=== PATIENT | male | born 1965 | race Caucasian/White ===

== ENCOUNTER 2017-10-30 06:32 | Day surgery (SDC) | payer BC ==
--- NOTE | 2017-10-26 20:12 | HP ---
PREOPERATIVE HISTORY AND PHYSICAL: DATE OF ADMISSION/SURGERY: 10/30/17 DATE OF OFFICE VISIT/ENCOUNTER: 10/19/17 ATTENDING SURGEON: Jossy Caldwell MD * (DICTATED BY SEBAS HEADLEY) PROCEDURE: Right long finger trigger finger release. CHIEF COMPLAINT: Right long finger triggering. HISTORY OF PRESENT ILLNESS: This is a 52-year-old male who complains of 3 years of triggering and locking in his right middle finger. He says it has gradually gotten worse. He had a cortisone injection a while ago and that did give him some relief. However, now he would like to proceed with surgical treatment. He denies any specific injury to this finger. PAST MEDICAL HISTORY: 1. Low testosterone. 2. Asthma. 3. Hypertension. 4. Sleep apnea for which he wears a CPAP. PAST SURGICAL HISTORY: Tonsillectomy. CURRENT MEDICATIONS: 1. Advair Diskus. 2. Bisoprolol fumarate 5 mg. 3. Daily multivitamins. 4. Testosterone 25 mg/2.5 g 1% two packets topically every day. ALLERGIES: PENICILLIN causes throat swelling FAMILY MEDICAL HISTORY: Diabetes, heart disease, stroke, hypertension. 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 He denies tobacco use, recreational drug use, and does not drink alcohol. REVIEW OF SYSTEMS: General: Negative for fevers, chills, or night sweats. No known anesthesia problems. HEENT: Negative for headache, lightheadedness, or syncopal episodes. Integumentary: Negative for abrasions, lesions, or open wounds. Cardiothoracic: Positive for hypertension. Negative for chest pain, palpitations, or edema. Pulmonary: Negative for shortness of breath with exertion, chronic cough, or COPD. GI: Negative for nausea, vomiting, diarrhea , constipation, or GERD. : Negative for nocturia, urinary frequency, urgency , history of UTIs, or kidney problems. Musculoskeletal: Positive for current complaint. Negative for chronic or intermittent back pain or history of fractures. Neurologic: Negative for paresthesias, numbness, history of seizures , stroke, or epilepsy. Endocrine: Negative for diabetes or thyroid issues. Hematologic: Negative for easy bruising, anemia, excessive bleeding, or history of DVT. Infectious Disease: Negative for history of MRSA, hepatitis C, or HIV. PHYSICAL EXAMINATION GENERAL: Well-developed, well-nourished, 52-year-old male, in no acute distress. VITAL SIGNS: Height is 5 feet 6 inches, weight 229 pounds. Blood pressure 122/ 84. HEENT: Normocephalic, atraumatic. Pupils are equal, round, and reactive to light and accommodation. Extraocular movements are intact. NECK: Supple. No palpable lymph nodes. Throat is clear. PULMONARY: Lungs are clear to auscultation bilaterally. No wheezes, rales, or rhonchi. CARDIOVASCULAR: Regular rate and rhythm. S1 and S2. No murmurs, rubs, or gallops. No edema. ABDOMEN: Positive bowel sounds, soft, nontender. NEUROLOGIC: Alert and oriented x3. Cranial nerves II through XII are intact. Sensation is intact to light touch. MUSCULOSKELETAL: On exam of the right hand, he cannot fully flex the middle finger into a fist. He lacks a little bit of extension at the PIP joint. He has tenderness to palpation at the A1 nery. Skin is intact. Neurovascular function is intact. IMPRESSION: Right middle finger trigger finger. PLAN: The patient is scheduled to undergo a right long finger trigger finger release with Dr. Caldwell on 10/30/17. He will return to the office 10 to 14 days postop for followup and suture removal. A prescription for Ultracet was e- scribed to the patient's pharmacy for postoperative pain management. SEBAS HEADLEY [id number]/[facility] #: [id number] SANGEETA
[~2017-10-30 06:32] MED LIST: Buffered Lidocaine 0.9% SYRIN* 5 ML/SYR SYRINGE INTRADERM ONE
[2017-10-30] MEDS ORDERED: Lidocaine 1% INJ* 10 MG/ML 30 ML SDV ONE (07:13)
[2017-10-30] MEDS ORDERED: Midazolam* 1 MG/ML 2 ML VIAL (2 MG) ONE (07:26)
[2017-10-30] MEDS ORDERED: Famotidine IV* 10 MG/ML 2 ML (20 mg) ONE (07:34)
[2017-10-30] MEDS ORDERED: Ketorolac INJ* 30 MG/ML 1 ML VIAL ONE (07:45)
[2017-10-30] MEDS ORDERED: fentaNYL* 50 MCG/ML 2 ML VIAL (100 MCG VIAL) ONE (07:45)
[2017-10-30] MEDS ORDERED: Propofol* 10 MG/ML 20 ML BTL IV PUSH ONE (07:45)
[2017-10-30] MEDS ORDERED: Lidocaine 2% PF * 5 ML VIAL ONE (07:45)
[2017-10-30] MEDS ORDERED: Acetaminophen TAB* 325 MG PO PRN (07:58)
[2017-10-30] MEDS ORDERED: DiMENhydriNATE IV* 50 MG/ML VIAL IV PUSH PRN (07:58)
[2017-10-30] MEDS ORDERED: Ondansetron INJ* 2 MG/ML VIAL IV PRN (07:58)
[2017-10-30] MEDS ORDERED: Levalbuterol 0.63MG/3ML NEB* UNIT OF USE INH PRN (07:58)
[2017-10-30 09:05] VITALS: BP 136/92
--- NOTE | 2017-10-30 12:56 | OP ---
DATE OF OPERATION: 10/30/17 [facility] DATE OF : 61 SURGEON: Jossy Caldwell MD ASSESSMENT SPECIALIST: SEBAS Acosta. ANESTHESIA: Local MAC PRE-OP DIAGNOSIS: Right long finger trigger finger. POST-OP DIAGNOSIS: Right long finger trigger finger OPERATIVE PROCEDURE: Right long finger trigger release. ESTIMATED BLOOD LOSS: Zero. TOURNIQUET TIME: About 5 minutes. INDICATIONS: Angus is a 52-year-old man with triggering and locking of his right middle finger. He presents for trigger finger release. DESCRIPTION OF PROCEDURE: The patient was brought to the operating room, was given a sedation anesthetic and a local infiltration of 10 cc of 1% plain lidocaine in the palm of his right hand. The skin of his right hand and forearm was prepped and draped in usual sterile fashion. The hand and forearm was exsanguinated and the tourniquet elevated to 250 mmHg. A transverse incision was made centered at the A1 nery of the right middle finger. We dissected bluntly through the subcutaneous tissue. The digital neurovascular bundles were retracted by the rn surgical pcu, SEBAS Acosta. The A1 nery was then incised longitudinally, completely releasing the flexor tendons , which were in good condition. The wound was irrigated and the skin edges reapproximated with 4-0 nylon suture. The wound was dressed with Xeroform, 4x4 , Webril and an Keagan wrap. The patient tolerated the procedure well and was brought to the recovery room in good condition. [id number]/[facility] #: [id number] MTDSara
== END 2017-10-30 09:15 | disposition home or self-care (01) ==
LOC: OREAST 06:32
PROVIDERS: ATTEND Orthopaedic Surgery
DX: M65.331 Trigger finger, right middle finger (principal); I10 Essential (primary) hypertension; J45.909 Unspecified asthma, uncomplicated; G47.33 Obstructive sleep apnea (adult) (pediatric); F41.9 Anxiety disorder, unspecified
CPT/HCPCS: J1885; J2250; J2704; J3010